=== PATIENT | female | born 1950 | race Caucasian/White ===

== ENCOUNTER 2017-08-14 16:40 | Outpatient (CLI) | payer MEDICARE, OTHER ==
--- NOTE | 2017-08-14 19:17 | Ultrasound Report ---
EXAM: BILATERAL LOWER EXTREMITY VENOUS ULTRASOUND EXAM DATE: 08/14/2017 05:56 PM. CLINICAL HISTORY: Acute embolism and thrombosis unspecified, deep veins. COMPARISON: None. TECHNIQUE: Real-time sonographic vascular imaging was performed by the auto detailer through the lower extremities utilizing both color-flow and Doppler spectral analysis. Multiple physician relations representative static i mages were saved for review. FINDINGS: Right: Common Femoral Vein (CFV): Normal. CFV-GSV Junction: Normal. Profunda Femoral Vein (PFV): Normal. Femoral Vein (FV) Prox: Normal. Femoral Vein (FV) Mid: Normal. Femoral Vein (FV) Dist: Normal. Popliteal Vein: Normal. Posterior Tibial Veins: Normal. Peroneal Veins: Normal. Left: Common Femoral Vein (CFV): Normal. CFV-GSV Junction: Normal. Profunda Femoral Vein (PFV): Normal. Femoral Vein (FV) Prox: Normal. Femoral Vein (FV) Mid: Normal. Femoral Vein (FV) Dist: Normal. Popliteal Vein: Normal. Posterior Tibial Veins: Normal. Peroneal Veins: Normal. Other: Loculated collection in the left anterior knee soft tissues measures 0.8 x 1.6 x 1.7 cm. Locul ated collection in the right anterior knee soft tissues measures 0.9 x 0.5 x 2 cm. No vascular compon ents or significant debris. IMPRESSION: 1. Small fluid collections anterior to the right and left knee measuring 1.7 cm and 2 cm, respectivel y. No debris or echogenic components. No adenopathy. Small seromas are most likely. In the setting of previous traumas, hematomas are in the differential. If the patient has soft tissue swelling and inf lammation, infection or abscesses are not excluded. 2. No evidence for deep venous thrombosis bilaterally. [facility] Referring Provider Line: [phone] SITE ID: [id number]
== END 2017-08-14 16:41 | disposition home or self-care (01) ==
LOC: DI 16:40
PROVIDERS: ATTEND Internal Medicine
DX: M25.462 Effusion, left knee (principal); M25.461 Effusion, right knee
CPT/HCPCS: 93970

== ENCOUNTER 2020-01-20 16:59 | Outpatient (CLI) | payer MEDICARE, OTHER | END 2020-01-20 17:00 | disposition home or self-care (01) | LOC: COV 16:59 | PROVIDERS: ATTEND Family Medicine | DX: R05 Cough (principal); M79.10 Myalgia, unspecified site; J02.9 Acute pharyngitis, unspecified | CPT/HCPCS: 81599 ==

== ENCOUNTER 2020-01-21 15:00 | Emergency (ER) | payer MEDICARE, OTHER ==
--- NOTE | 2020-01-21 15:05 | ED Physician Documentation ---
PD HPI FOCAL NEURO - Stated complaint Stated Complaint: LT SIDE FACE DROOP - History obtained from History obtained from: Patient - History of Present Illness Timing - onset: How many days ago (2) Timing - duration: Days (2) Timing - details: Gradual onset (The patient noted an onset of a abnormal sensation in the back left of her tongue and a mild feeling of weakness in the left corner of the mouth a couple of days ago. Yesterday she noticed a increase in degree of weakness around the mouth with some difficulty articulating at times. Her weakness was more notable through the day today. She is having trouble closing her eyes and raising her eyebrow and has having watering of her left eye. She denies any trouble seeing. She denies any weakness of her arms or legs. She has not had any confusion headache head injury or rash. She denies any history of cold sores. She had not had any travels in the last 6 months or so, in particular none to the [place] or [place] and denies any rash or sores over the last summer.) Severity of deficit: Moderate Weakness: Face. No: Arm, Leg Numbness: No: Face, Arm, Leg Associated symptoms: No: Headache, Nausea / vomiting, Head injury Contributing factors: negative: Anticoagulated, Atrial fibrillation Baseline status: positive: A&OX3, ambulatory, indep. negative: Mildly confused Similar symptoms before: Has not had sx before Recently seen: Not recently seen Review of Systems Constitutional: denies: Fever, Chills, Myalgias Nose: reports: Sinus pressure / pain. denies: Rhinorrhea / runny nose, Congestion Throat: denies: Sore throat Cardiac: denies: Chest pain / pressure Respiratory: denies: Dyspnea, Cough GI: denies: Abdominal Pain, Nausea, Vomiting, Diarrhea Skin: denies: Rash, Lesions PD PAST MEDICAL HISTORY - Past Medical History Cardiovascular: None Respiratory: COPD Neuro: None Endocrine/Autoimmune: None HEENT: None Psych: None - Present Medications Home Medications: Ambulatory Orders Medication Instructions Recorded Confirmed Valacyclovir HCl [Valacyclovir] 500 mg PO TID #20 tablet 01/21/20 dexAMETHasone [Decadron] 4 mg PO DAILY #7 tablet 01/21/20 - Living Situation Living Arrangement: reports: At home - Social History Does the pt smoke?: No Does the pt drink ETOH?: No Does the pt have substance abuse?: No - Family History Family history: denies: CVA, Cerebral aneurysm PD ED PE NORMAL - Vitals Vital signs reviewed: Yes - General General: Alert and oriented X 3, No acute distress, Well developed/nourished - HEENT HEENT: Atraumatic, PERRL, EOMI, Ears normal, Moist mucous membranes, Pharynx benign, Other (left facial weakness of whole side of face including forehead. No skin lesions. ) - Neck Neck: Supple, no meningeal sign, No adenopathy, No bruit - Cardiac Cardiac: RRR, No murmur - Respiratory Respiratory: Clear bilaterally - Abdomen Abdomen: Soft, Non tender - Female Female : Deferred - Rectal Rectal: Deferred - Back Back: No CVA TTP - Derm Derm: Normal color, Warm and dry - Extremities Extremities: No tenderness to palpate, Normal ROM s pain, No edema, No calf tenderness / cord - Neuro Neuro: Alert and oriented X 3, No sensory deficit, Normal speech Eye Opening: Spontaneous Motor: Obeys Commands Verbal: Oriented GCS Score: 15 Results - Vitals Vitals: Oxygen O2 Source Room air PD MEDICAL DECISION MAKING - ED course Complexity details: considered differential (just facial palsy slow onset, including forehead, c/w Ludwig Palsy. No hisotry of phwe), d/w patient Departure - Departure Disposition: 01 Home, Self Care Clinical Impression: Ludwig palsy Condition: Stable Record reviewed to determine appropriate education?: Yes Instructions: ED [place] Palsy Follow-Up: Rafaela Chavira MD [Primary Care Provider] - Prescriptions: dexAMETHasone [Decadron] 4 mg PO DAILY #7 tablet Valacyclovir HCl [Valacyclovir] 500 mg PO TID #20 tablet Comments: You will want to get some patrol at home I moisturizer (Lacri-Lube, refresh eyes, are common tradename's) to use on your eye every few hours during the day to keep it from drying out. You can tape it close gently with paper tape at night for sleep and during the day if it is bothersome if it does not close completely. This looks to be in inflammation of the facial nerve causing weakness on that side. (Ludwig's palsy). This would not represent a stroke. We can treat with some anti-inflammatory of Decadron steroid daily for a week and also an antiviral (valacyclovir 3 times a day for a week). This will try to minimize the degree of symptoms that you develop and lessen the duration. Common course of Ludwig's palsy is an increasing weakness for about 4 to 6 days at which point it hits its maximal degree of weakness and then resolution slowly over about 4 to 6 weeks. Individual time course is may differ from that some. Follow-up with your primary care if not plateaued and starting to improve over the next week or so. Return or recheck if other symptoms develop with it such as rash, fevers, other symptoms. Discharge Date/Time: 01/21/20 16:05
[2020-01-21] MEDS ORDERED: valACYclovir 500 MG TABLET PO STA (15:47)
[2020-01-21] MEDS ORDERED: DEXAMETHASONE 10 MG/ML VIAL PO STA (15:47)
[2020-01-21] MEDS ORDERED: CHERRY SYRUP 10 ML UDC PO ONE (15:47)
[2020-01-21 16:06] VITALS: BP 165/56
== END 2020-01-21 16:05 | disposition home or self-care (01) ==
LOC: ED 15:00
DX: G51.0 Bell's palsy (principal)
CPT/HCPCS: 99282; 99284; A9270